=== PATIENT | male | born 1990 | race Two or more races ===

== ENCOUNTER 2020-02-14 23:41 | Emergency (ER) | payer OTHER ==
--- OUTSIDE RECORDS SUMMARY | 2020-02-15 00:17 | XMS ---
:1990 Author Organization [facility] Support Name Relationship Address Phone UE Unavailable Unavailable Unavailable NA Unavailable Unavailable Unavailable DEL SAMUEL UN [address] [place] [address] Re-disclosure Warning The records that you are about to access may contain information from federally- assisted alcohol or drug abuse programs. If such information is present, then the following federally mandated warning applies: This information has been disclosed to you from records protected by federal confidentiality rules (42 CFR part 2). The federal rules prohibit you from making any further disclosure of this information unless further disclosure is expressly permitted by the written consent of the person to whom it pertains or as otherwise permitted by 42 CFR part 2. A general authorization for the release of medical or other information is NOT sufficient for this purpose. The Federal rules restrict any use of the information to criminally investigate or prosecute any alcohol or drug abuse patient.The records that you are about to access may contain highly sensitive health information, the redisclosure of which is protected by Article 27-F of the [facility] Public Health law. If you continue you may haveaccess to information: Regarding HIV / AIDS; Provided by facilities licensed or operated by the [facility] Office of Mental Health; or Provided by the [facility] Office for People With Developmental Disabilities. If such information is present, then the following [facility] mandated warning applies: This information has been disclosed to you from confidential records which are protected by state law. State law prohibits you from making any further disclosure of this information without the specific written consent of the person to whom it pertains, or as otherwise permitted by law. Any unauthorized further disclosure in violation of state law may result in a fine or intermediate sentence or both. A general authorization for the release of medical or other information is NOT sufficient authorization for further disclosure. Encounters Encounter Providers Location Date Indications Data Source(s ) Emergency H 12/18/2018 09:34:00 [facility] EDT - 12/18/2018 Ameena de la garza 11:36:00 AM EDT Patient discharged. Medications Medication Brand Start Product Dose Route Administrative Pharmacy St atus Indications Reaction Description Data Name Date Form Instructions Instructions Source(s) Azithromyci AZITHr 1 complet Jorge nt n 250 MG omycin ed Kelsie Oral Tablet 250 mg Medica l AZITHromyci Tablet Center n 250 mg , Tablet, Ordere Ordered By: d By: Carmelo Shanks MDDirection s, s: 1 tablet MDDire oral daily ctions : 1 tablet oral daily Insurance Providers Payer name Policy type Policy ID Covered Covered democrat's Policy P karolyn / Coverage democrat ID relationship to Francis Inf ormation type francis SELF PAY SP INSURANCE [facility] W [id number] Problems, Conditions, and Diagnoses Code Display Name Description Problem Type Effective Dates Data Source(s) J40 Bronchitis, not BRONCHITIS, NOT Diagnosis 12/18/2018 Stacie Iglesias specified as SPECIFIED ACUTE 09:34:00 AM EDT [facility] Center acute or chronic OR CHRONIC R05 Cough COUGH Diagnosis 12/18/2018 [facility] 09:34:00 AM EDT Medical enter Results ID Date Data Source [id number] 01/27/2020 09:48:00 AM EDT [facility] Name Value Range Interpretation Description Data Sup porting Code Source(s) Document(s ) SARS-CoV-2 [facility] (COVID-19) RNA panel - Unspecified specimen by XAVIER with probe detection This lab was ordered by [employer] [facility] [address] [place] [address] and reported by [facility]. ID Date Data Source [id number] 12/23/2019 09:27:00 AM EDT [facility] Name Value Range Interpretation Code Description Data Vannessa rce(s) Supporting Document(s ) SARS-COV-2 [facility] RESP Diagnostics QL XAVIER+PROBE This lab was ordered by [employer] [facility] and reported by [employer] [facility]. ID Date Data Source [id number] 10/10/2019 11:10:00 AM EDT [facility] Name Value Range Interpretation Code Description Data Vannessa rce(s) Supporting Document(s ) COV2 [facility] This lab was ordered by [employer] and reported by [facility] [place]. ID Date Data Source [id number] 07/30/2019 08:41:00 PM EDT [facility] Name Value Range Interpretation Code Description Data Vannessa rce(s) Supporting Document(s ) 2019-nCoV [facility] RNA XXX XAVIER+probe- Imp This lab was ordered by [address] [place] [address] (Interface) and reported by [employer] [facility]. Procedure Social History Code Duration Value Status Description Data Source(s ) Smoking 12/18/2018 Denies Ever completed Denies Ever Smoked [facility] 10:06:00 AM EDT Smoked [facility] C enter Smoking 12/18/2018 Denies Ever completed Denies Ever Smoked [facility] 09:45:00 AM EDT Sm[facility] C enter Vital Signs ID Date Data Source UNK Name Value Range Interpretation Code Description Data Source(s) Body weight 131.068011 131.571392 kg [facility] Measured kg [facility] Body temperature 36.006126 36.944440 Pretty [facility] Respiratory rate 18 /min 18 /min [facility] Oxygen saturation 94 % 94 % [facility] in Arterial blood [facility] by Pulse oximetry Heart rate 83 /min 83 /min [facility] Body height 185.583255 185.545102 cm [facility] Body mass index 38.2 kg/m2 38.2 kg/m2 [facility] (BMI) [Ratio] Medical Lars ter Patient Treatment Plan of Care Planned Activity Planned Date Details Description Data Source (s) Azithromycin 250 MG Oral Jorge [facility]
[2020-02-15 01:19] VITALS: BMI 41.1
[2020-02-15 01:20] VITALS: TEMP 98.3
--- NOTE | 2020-02-15 02:07 | PDOC ---
History of Present Illness - General Chief Complaint: Chest Pain Stated Complaint: CHEST PAIN Time Seen by Provider: 02/15/20 02:06 - History of Present Illness Initial Comments: HPI: 29yo M with PMH of HTN, anxiety presenting with chest pain x 3 months. Patient reports he has had this intermittently for the past three months. Has been evaluated by pocket secretary assembler in this time period and has had a normal stress test. The chest pain is described as a pressure radiating to his left arm. No associated nausea, vomiting, or diaphoresis. Nothing makes the pain better or worse. Presents today because the chest pain is more severe in quality. He had this episode for about ten minutes starting at 10pm while watching television. No hemoptysis, no recent surgical history, no recent immobilization, no hormone use, no history of DVT or PE. No fevers or chills. PCP: Dr. Renee Camargo ROS: Constitutional: no fever, no chills HEENT: no throat pain, no dysphagia Cardiovascular: +chest pain, no palpitations Respiratory: no cough, no shortness of breath Gastrointestinal: no abdominal pain, no nausea Genitourinary: no dysuria, no hematuria Musculoskeletal: no myalgia, no arthralgia Skin: no rash, no itching Neurologic: no headache, no weakness Psych: no agitation, no anxiety PE: General: Awake, alert, and fully oriented, in no acute distress Head: No signs of trauma Eyes: EOMI, sclera anicteric ENT: Moist mucus membranes Neck: Normal ROM, supple Lungs: Lungs clear, Normal breath sounds Cardio: Regular rhythm, S1 and S2 present Abdomen: Soft, nontender Extremities: Normal range of motion, Distal pulses present Skin: Warm, Dry, normal turgor Neurologic: Cranial nerves II through XII grossly intact. Normal speech ED Course/MDM: DDX including but not limited to COVID-19, ACS, PE, PNA, anemia, metabolic derangement Patient is well-appearing Initial Vital Signs Temp Pulse Resp BP Pulse Ox 98.3 F 86 17 149/88 95 02/15/20 01:15 02/15/20 01:15 02/15/20 01:15 02/15/20 01:15 02/15/20 01:15 VSS PERC 0, WELLS 0; low suspicion for PE Low suspicion for acute cardiac pathology as patient had recent negative stress test and has few risk factors (only HTN and obesity) Fingerstick, EKG, CXR 02/15/20 02:07 EKG: rate 81, QTc 422, NSR, no EKG's for comparison CXR without acute abnormality, my impression FS 113 Patient to follow up with pocket secretary assembler and primary care physician Return precautions Stable for discharge 02/15/20 03:00 Past History - Psycho-Social/Smoking History Smoking History: Current some day smoker Information on smoking cessation initiated: Yes - Substance Abuse Hx (Audit-C & DAST Scrn) How often the patient has a drink containing alcohol: Monthly or less Score: In Men: 4 or > Positive; In Women: 3 or > Positive: 1 Screen Result (Pos requires Nsg. Audit-10AR): Negative *Physical Exam - Vital Signs Last Vital Signs Temp Pulse Resp BP Pulse Ox 98.3 F 86 17 149/88 95 02/15/20 01:15 02/15/20 01:15 02/15/20 01:15 02/15/20 01:15 02/15/20 01:15 Discharge - Discharge Information Problems reviewed: Yes Clinical Impression/Diagnosis: Chest pain Qualifiers: Chest pain type: unspecified Qualified Code(s): R07.9 - Chest pain, unspecified Condition: Stable Disposition: HOME - Follow up/Referral Referrals: ON STAFF,NOT [Primary Care Provider] - - Patient Discharge Instructions Patient Printed Discharge Instructions: Eating a Diet Rich in Fruits and Vegetables, DI for Atypical Chest Pain Additional Instructions: You came into the emergency department after feeling chest pain. Xray and EKG did not indicate acute pathology. Eat and hydrate throughout the day to prevent dehydration and low blood sugar levels. Continue taking home medications as prescribed by your physician. Follow up with your primary care physician within 72 hours. Call and make an appointment to further evaluate your symptoms. Your workup is not complete until you do so. Immediate medical attention is required if you have: worsening chest pain, palpitations, shortness of breath, severe headaches, changes in vision, episodes of fainting, focal numbness or weakness, any severe abdominal pain, any black tarry stool, or any new or concerning symptoms. If you think you are having an emergency, call for emergency medical services or present to the emergency department right away. - Post Discharge Activity Work/Back to School Note: Back to Work
--- NOTE | 2020-02-15 02:23 | PDOC ---
Attending Attestation - Resident Resident Name: Renetta Escobedo - ED Attending Attestation I have performed the following: I have examined & evaluated the patient, The case was reviewed & discussed with the resident, I agree w/resident's findings & plan - HPI HPI: 02/15/20 02:56 Pt comes with MSCP that radiates down the left arm. He was watching TC with family when this started. He has a marriage and family counselor who gave him stress test and echo recently; both were normal Pt tells me that this was likely a panic attack - Physicial Exam PE: 02/15/20 02:58 Pt is obese with obese abdomen Rest of exam is normal agree with resident exam - Medical Decision Making 02/15/20 02:59 NSR on EKG CXR clear throughout pt doesnt need labs vitals stable home with psych follow up for panic attacks. Discharge - Discharge Information Problems reviewed: Yes Clinical Impression/Diagnosis: Chest pain Qualifiers: Chest pain type: unspecified Qualified Code(s): R07.9 - Chest pain, unspecified - Follow up/Referral Referrals: ON STAFF,NOT [Primary Care Provider] - - Patient Discharge Instructions Patient Printed Discharge Instructions: DI for Atypical Chest Pain, Eating a Diet Rich in Fruits and Vegetables Additional Instructions: You came into the emergency department after feeling chest pain. Xray and EKG did not indicate acute pathology. Eat and hydrate throughout the day to prevent dehydration and low blood sugar levels. Continue taking home medications as prescribed by your physician. Follow up with your primary care physician within 72 hours. Call and make an appointment to further evaluate your symptoms. Your workup is not complete until you do so. Immediate medical attention is required if you have: worsening chest pain, palpitations, shortness of breath, severe headaches, changes in vision, episodes of fainting, focal numbness or weakness, any severe abdominal pain, any black tarry stool, or any new or concerning symptoms. If you think you are having an emergency, call for emergency medical services or present to the emergency department right away. - Post Discharge Activity Work/Back to School Note: Back to Work
[2020-02-15 03:08] VITALS: BP 139/86
[2020-02-15 03:10] VITALS: PULSE 85
--- NOTE | 2020-02-15 17:02 | EKG ---
Test Reason : Blood Pressure : / mmHG Vent. Rate : 081 BPM Atrial Rate : 081 BPM P-R Int : 154 ms QRS Dur : 106 ms QT Int : 364 ms P-R-T Axes : 046 066 031 degrees QTc Int : 422 ms NORMAL SINUS RHYTHM NORMAL ECG NO PREVIOUS ECGS AVAILABLE Confirmed by AJ GALINDO MD ([id number]) on 02/15/2020 5:01:53 PM Referred By: Confirmed By:AJ GALINDO MD
== END 2020-02-15 03:20 | disposition home or self-care (01) ==
LOC: JER 23:41
DX: R07.9 Chest pain, unspecified (principal)
CPT/HCPCS: 71046-TC-FY; 82962; 93005; 93010; 99282-25